=== PATIENT | male | born 1955 | race African-American/Black ===

== ENCOUNTER 2017-01-09 12:23 | Emergency (ER) | payer MEDICAID ==
[~2017-01-09] VITALS: Ht 175.3 cm; Wt 81.6 kg
[~2017-01-09 12:23] MED LIST: LANS15CA21 PO; MEGESTROL; METO5TAB67; NUTR1.5L4 GT; PHENERGAN; PRILOSEC; VENTOLIN; VICODIN
[2017-01-09 13:30] LABS: Basophils # (auto) 0 uL; Basophils % (auto) 0.3 % (0.0-2.0); DEFINITIVE VIEW TRANSMISSION; Eosinophils # (auto) 0 uL; Hemoglobin 11.8 g/dL (13.5-17.5); Lymphocytes # (auto) 1.6 uL; Lymphocytes % (auto) 21.5 % (10.0-50.0); Mean Corpuscular Hgb Conc. 31.9 g/dL (32.0-36.0); Mean Platelet Volume 8.7 fL (7.4-10.4); Monocytes # (auto) 0.4 uL; Monocytes % (auto) 5.9 % (0.0-12.0); Neutrophils # (auto) 5.5 uL; Neutrophils % (auto) 72.3 % (37.0-80.0); Platelet Count (auto) 311 10^3/uL (140-450); SUSPECT VIEW TRANSMISSION; White Blood Cell 7.6 10^3/uL (4.4-10.8)
[2017-01-09 13:36] LABS: Hematocrit 36.8 % (41.0-53.0); Mean Corpuscular Hemoglobin 37.6 pg (28.0-32.0); Mean Corpuscular Volume 117.5 fL (80.0-100.0); Partial Thromboplastin Time 30.1 sec (22.64-33.71); Prothrombin Time 11.9 sec (9.37-12.3); Red Cell Distribution Width 25.4 % (11.6-16.0)
[2017-01-09 13:43] LABS: INR 1.16 (0.9-1.15)
[2017-01-09 13:46] LABS: Albumin 3.1 g/dL (3.4-5.0); BUN/Creatinine Ratio 33.3; Bilirubin, Total 0.4 mg/dL (0.2-1.0); Calcium 8.2 mg/dL (8.5-10.1); Potassium 3.4 mmol/L (3.5-5.1); Total Protein 7.9 g/dL (6.4-8.2)
[2017-01-09] MEDS ORDERED: GASTROGRAFIN 120 ML SOL ONE (14:14)
[2017-01-09] MEDS ORDERED: fentaNYL CITRATE 100 MCG/2 ML VL ONE (14:28)
[2017-01-09] MEDS ORDERED: MIDAZOLAM HCL 5 MG/ML-1ML VIAL ONE (14:28)
[2017-01-09] MEDS ORDERED: SODIUM CHLORIDE LOCK 10 ML ONE (14:28)
[2017-01-09] MEDS ORDERED: diphenhdrAMINE HCL 50 MG/1 ML VL ONE (14:28)
[2017-01-09] MEDS ORDERED: FLUMAZENIL 0.1 MG/ML INJ 10ML MDV IV ONE (14:30)
[2017-01-09] MEDS ORDERED: NALOXONE HCL 0.4 MG/ML VIAL ONE (14:30)
[2017-01-09 14:51] LABS: Anisocytosis Moderate; Macrocytosis Marked; Platelet Estimate Adequate
[2017-01-09 16:42] VITALS: BP 138/80
== END 2017-01-09 16:46 | disposition home or self-care (01) ==
LOC: EDBD 12:23 → ER 12:32
DX: T18.108A Unspecified foreign body in esophagus causing other injury, initial encounter (principal); J45.909 Unspecified asthma, uncomplicated; J44.9 Chronic obstructive pulmonary disease, unspecified; K21.9 Gastro-esophageal reflux disease without esophagitis; F12.10 Cannabis abuse, uncomplicated; Z95.1 Presence of aortocoronary bypass graft; Z98.890 Other specified postprocedural states; Z87.891 Personal history of nicotine dependence; Z88.6 Allergy status to analgesic agent; X58.XXXA Exposure to other specified factors, initial encounter; Y93.9 Activity, unspecified; Y92.89 Other specified places as the place of occurrence of the external cause; Y99.8 Other external cause status
CPT/HCPCS: 36415; 80053; 85025; 85610; 85730; 93005; 94761; 99285; J2250; J3010

== ENCOUNTER 2017-11-09 18:56 | Emergency (ER) | payer MEDICAID ==
[~2017-11-09] VITALS: Ht 175.3 cm; Wt 45.4 kg
[~2017-11-09 18:56] MED LIST changes: +ALBUAER3 IN; +CYAN1TAB14 PO; +DOXY1CAP82 PO; +FAM20T PO; +FERR-7 PO; +FURO40TA PO; +METH4PAK PO; +MUPI2OIN10 EACHNOSTRI
[2017-11-09 20:06] VITALS: BP 134/97
== END 2017-11-09 23:27 | disposition home or self-care (01) ==
LOC: EDBD 18:56 → ER 19:02
DX: T85.598A Other mechanical complication of other gastrointestinal prosthetic devices, implants and grafts, initial encounter (principal); K94.23 Gastrostomy malfunction; J45.909 Unspecified asthma, uncomplicated; I50.9 Heart failure, unspecified; J44.9 Chronic obstructive pulmonary disease, unspecified; I25.2 Old myocardial infarction; Z86.73 Personal history of transient ischemic attack (TIA), and cerebral infarction without residual deficits; Z88.8 Allergy status to other drugs, medicaments and biological substances; Z79.899 Other long term (current) drug therapy; Z79.891 Long term (current) use of opiate analgesic

== ENCOUNTER 2020-04-22 14:16 | Inpatient (IN) | payer MEDICARE, MEDICAID ==
[~2020-04-22] VITALS: Ht 175.3 cm; Wt 40.8 kg
[~2020-04-22 14:16] MED LIST changes: +DOXY-338 PO; -DOXY1CAP82 PO; -FAM20T PO; +FAMO20TA10 PO; +FURO1TAB31 PO; -FURO40TA PO; -NUTR1.5L4 GT; +NUTR1LIQ GT
[2020-04-22 15:47] LABS: Basophils # (auto) 0 10 ^3/uL (0-0.2); Basophils % (auto) 0.1 % (0.0-2.0); Eosinophils # (auto) 0 10 ^3/uL (0-0.8); Hematocrit 51.1 % (41.0-53.0); Lymphocytes # (auto) 0.7 10 ^3/uL (0.4-5.4); Lymphocytes % (auto) 9.7 % (10.0-50.0); Mean Corpuscular Hgb Conc. 33.3 g/dL (32.0-36.0); Mean Corpuscular Volume 96.2 fL (80.0-100.0); Monocytes # (auto) 0.9 10 ^3/uL (0-1.3); Monocytes % (auto) 11.8 % (0.0-12.0); Neutrophils % (auto) 78.4 % (37.0-80.0); Nucleated Red Blood Cells % 0.1 %; Platelet Count (auto) 171 10^3/uL (140-450); Red Blood Cells 5.31 10^6/uL (4.5-5.90); Red Cell Distribution Width 14.6 % (11.8-14.3); White Blood Cell 7.7 10^3/uL (4.4-10.8)
[2020-04-22 16:03] LABS: Alanine Aminotransferase 25 U/L (16-61); Albumin 3.5 g/dL (3.4-5.0); Anion Gap 5 (5-15); Aspartate Aminotransferase 17 U/L (15-37); BUN/Creatinine Ratio 16.2; Blood Urea Nitrogen 12 mg/dL (7-18); Calcium 8.3 mg/dL (8.5-10.1); Carbon Dioxide 29 mmol/L (21-32); Chloride 101 mmol/L (98-107); GFR African American 136 mL/min; GFR Non-African American 112 mL/min; Glucose 101 mg/dL (74-106); Sodium 135 mmol/L (136-145)
[2020-04-22 16:05] LABS: Urine Bacteria MANY /hpf (None Seen); Urine Blood Negative /uL (Negative); Urine Mucus FEW (None Seen); Urine Specific Gravity 1.023 (1.001-1.035); Urine WBC 37 /hpf (0 - 3)
[2020-04-22 16:08] LABS: Alkaline Phosphatase 85 U/L (45-117); Bilirubin, Total 0.8 mg/dL (0.2-1.0); Total Protein 8.2 g/dL (6.4-8.2)
[2020-04-22] MEDS ORDERED: cefTRIAXone 1GM/50ML D5W 50 ML IV ONE (18:00)
[2020-04-22 19:15] VITALS: BP 104/71
[2020-04-22] MEDS ORDERED: NITROGLYCERIN 0.4 MG SL TAB SL PRN ×3 (19:45→23:45)
[2020-04-22] MEDS ORDERED: MORPHINE SULF INJ 2 MG/ML SYRINGE 1ML IV PRN ×3 (19:45→23:45)
[2020-04-22] MEDS ORDERED: FUROSEMIDE 40 MG/4 ML VIAL IV ONE (19:45)
[2020-04-22] MEDS ORDERED: SOD CHL 0.45% 1,000 ML IV SCH (23:36)
[2020-04-22] MEDS ORDERED: LORazepam 0.5 MG TAB PO PRN ×2 (23:45)
[2020-04-22] MEDS ORDERED: DOCUSATE SOD 100 MG CAP PO PRN (23:45)
[2020-04-22] MEDS ORDERED: HYDROcodone-ACET 5/325MG TAB PO PRN (23:45)
[2020-04-22] MEDS ORDERED: ALUM & MAG HYDROX-SIMETH LIQ(MAALOX) 30 ML PO PRN (23:45)
[2020-04-22] MEDS ORDERED: ONDANSETRON HCL 4 MG/2 ML VIAL IV PRN ×2 (23:45)
[2020-04-22] MEDS ORDERED: ACETAMINOPHEN 500 MG TAB PO PRN (23:45)
[2020-04-23] MEDS ORDERED: FUROSEMIDE 20 MG/2 ML VIAL IV ONE
[2020-04-23] MEDS ORDERED: IPRATROPIUM BROM 0.5 MG/2.5ML INH SOL NEB SCH (02:00)
[2020-04-23] MEDS ORDERED: ALBUTEROL SULF 2.5 MG/0.5ML(0.5%) NEB SOLN NEB SCH (02:00)
[2020-04-23] MEDS ORDERED: ALBUTEROL SULF HFA 90MCG INH 200DOSE IN SCH (06:00)
[2020-04-23] MEDS ORDERED: FUROSEMIDE 20 MG/2 ML VIAL IV SCH (06:00)
[2020-04-23] MEDS ORDERED: methylPREDNISolone SOD SUCC 40 MG/ML VL IV SCH (06:00)
[2020-04-23] MEDS ORDERED: LISINOPRIL 5 MG TAB PO SCH (10:00)
[2020-04-23] MEDS ORDERED: DOCUSATE SOD 100 MG CAP PO SCH (10:00)
[2020-04-23] MEDS ORDERED: CHOLECALCIFEROL (VITD3) 1,000UNIT=25mCg TAB PO SCH (10:00)
[2020-04-23] MEDS ORDERED: CLOPIDOGREL BISULFATE 75 MG TAB PO SCH (10:00)
[2020-04-23] MEDS ORDERED: ASCORBIC ACID 1,000 MG TAB PO SCH (10:00)
[2020-04-23] MEDS ORDERED: CARVEDILOL 3.125 MG TAB PO SCH (10:00)
[2020-04-23] MEDS ORDERED: DOXYCYCLINE 100 MG TAB/CAP PO SCH (10:00)
[2020-04-23] MEDS ORDERED: ENOXAPARIN SOD 40 MG/0.4 ML SYRINGE SC SCH (10:00)
[2020-04-23] MEDS ORDERED: ZINC SULFATE 220mg CAP or TAB PO SCH (10:00)
[2020-04-23] MEDS ORDERED: ATORVASTATIN 20 MG TAB PO SCH (22:00)
== END 2020-04-22 21:09 | disposition left against medical advice (07) | DRG 139 ==
LOC: ER 14:16 → EDBD 14:16 → TELE 14:17
PROVIDERS: ADMIT Hospitalist; ATTEND Internal Medicine
DX: J12.9 Viral pneumonia, unspecified (principal); I50.23 Acute on chronic systolic (congestive) heart failure; R64 Cachexia; J44.1 Chronic obstructive pulmonary disease with (acute) exacerbation; I24.9 Acute ischemic heart disease, unspecified; J45.901 Unspecified asthma with (acute) exacerbation; N10 Acute pyelonephritis; Z53.29 Procedure and treatment not carried out because of patient's decision for other reasons; Z79.899 Other long term (current) drug therapy; Z82.49 Family history of ischemic heart disease and other diseases of the circulatory system; Z83.3 Family history of diabetes mellitus; Z86.73 Personal history of transient ischemic attack (TIA), and cerebral infarction without residual deficits; Z87.891 Personal history of nicotine dependence; Z95.1 Presence of aortocoronary bypass graft; Z88.6 Allergy status to analgesic agent
CPT/HCPCS: 36415; 71045; 80053; 81001; 82728; 84484; 85025; 87040; 87086; 93005; 96365; 96375; G0378; J0696